=== PATIENT | female | born 1975 | race Caucasian/White ===

== ENCOUNTER 2018-06-06 23:03 | Emergency (ER) | payer BC ==
[~2018-06-06] VITALS: Ht 160 cm; Wt 72.6 kg
[2018-06-06] MEDS ORDERED: XANAX 0.25 MG0.25 MG PO (23:27)
[2018-06-06] MEDS ORDERED: SEROQUEL 25 MG25 M1 PO (23:27)
[2018-06-06] MEDS ORDERED: AMBIEN 5 MG TABL5 M1 PO (23:28)
[2018-06-06 23:38] LABS: HEMATOCRIT 35.8 % (37.0-47.0); HEMOGLOBIN 12.2 gm/dL (12.0-15.0); MCHC 33.9 g/dL (28.0-37.0); MCV 88.4 fL (80.0-100.0); RBC 4.05 mil/uL (4.20-5.00); RDW 15.6 % (10.5-14.5); WBC 4.1 thou/uL (4.0-11.0)
[2018-06-06 23:43] LABS: CALCIUM 8.8 mg/dL (8.5-10.1); CREATININE 0.8 mg/dL (0.6-1.0)
[2018-06-06 23:46] LABS: ALBUMIN 3.9 g/dL (3.4-5.0); TOTAL BILIRUBIN 0.5 mg/dL (<0.1-1.0); TOTAL PROTEIN 7.2 g/dL (6.4-8.2)
[2018-06-07 00:10] LABS: URINE BILIRUBIN NEGATIVE (Negative); URINE BLOOD 1+ (Negative); URINE CLARITY CLEAR; URINE COLOR YELLOW; URINE GLUCOSE-RANDOM* NEGATIVE (Negative); URINE KETONES NEGATIVE (Negative); URINE LEUKOCYTES-REFLEX NEGATIVE (Negative); URINE NITRITE-REFLEX NEGATIVE (Negative); URINE PROTEIN (DIPSTICK) NEGATIVE (Negative); URINE SPECIFIC GRAVITY 1.015 (1.005-1.035); URINE UROBILINOGEN 0.2 E.U./dl (0.2-1.0)
[2018-06-07 00:19] LABS: AMP/METHAMP Negative (Negative); BARBITURATES Negative (Negative); BENZODIAZEPINES POSITIVE (Negative); COCAINE Negative (Negative); METHADONE Negative (Negative); OPIATES Negative (Negative); PCP Negative (Negative)
[2018-06-07 00:22] LABS: CASTS None Seen /LPF (None Seen); MUCUS None Seen strn/LPF (None Seen); SQUAMOUS 4-10 Moderate /LPF (0-3); URINE RBC 0-2 Rare /HPF (0-2); URINE WBC-REFLEX 0-5 Rare /HPF (0-5)
[2018-06-07 00:23] LABS: CRYSTALS None Seen /LPF (None Seen)
[2018-06-07] MEDS ORDERED: NITROFURANTOIN100 MG PO (00:33)
[2018-06-07 00:42] VITALS: BP 125/68
== END 2018-06-07 00:43 | disposition home or self-care (01) ==
LOC: ER 23:03
PROVIDERS: Emergency Medicine
DX: N39.0 Urinary tract infection, site not specified (principal); N93.9 Abnormal uterine and vaginal bleeding, unspecified; F17.210 Nicotine dependence, cigarettes, uncomplicated; Z88.6 Allergy status to analgesic agent; Z88.8 Allergy status to other drugs, medicaments and biological substances; Z88.0 Allergy status to penicillin; Z88.2 Allergy status to sulfonamides